=== PATIENT | male | born 1980 ===

== ENCOUNTER 2018-01-15 08:11 | Emergency (ER) | payer OTHER ==
[2018-01-15 08:18] VITALS: BMI 26.6
--- NOTE | 2018-01-15 08:44 | C.PDOC ---
History Of Present Illness 37 year old male presents to ED with complaints of right knee pain after trip and fall yesterday in his home. He states floor was wet and he fell onto right knee and now complains of pain worse with bending or walking. He applied ice and has not taken any pain medication. He states he noticed swelling and bruising to knee and comes in for evaluation. Time Seen by Provider: 01/15/18 08:25 Chief Complaint (Nursing): Lower Extremity Problem/Injury History Per: Patient History/Exam Limitations: no limitations Current Symptoms Are (Timing): Still Present Past Medical History Reviewed: Historical Data, Nursing Documentation, Vital Signs Vital Signs: Last Vital Signs Temp 97.4 F L 01/15/18 10:03 Pulse 62 01/15/18 10:03 Resp 18 01/15/18 10:03 BP 133/79 01/15/18 10:03 Pulse Ox 97 01/15/18 16:14 - [facility] Procedures CLOSURE SKIN & SUBCUTANEOUS NEC (07/12/13) TETANUS TOXOID ADMINIST (07/12/13) Family History: States: No Known Family Hx - Social History Hx Tobacco Use: Yes Hx Alcohol Use: Yes Hx Substance Use: No - Immunization History Hx Tetanus Toxoid Vaccination: Yes Hx Influenza Vaccination: No Hx Pneumococcal Vaccination: No Review Of Systems Musculoskeletal: Positive for: Other (right knee pain). Negative for: Back Pain Neurological: Negative for: Weakness, Numbness Physical Exam - Physical Exam Appears: Non-toxic, No Acute Distress Skin: Warm, Dry, No Rash Head: Normacephalic Eye(s): bilateral: PERRL Nose: Normal Oral Mucosa: Moist Lips: Normal Appearing Neck: Normal ROM Extremity: Other (knee pain, swelling Right knee with mild swelling, tenderness and ecchymosis to medial subpatellar area, normal ROM. Ankle and foot nontender and no swelling or limited ROM) Pulses: Left Dorsalis Pedis: Normal, Right Dorsalis Pedis: Normal Neurological/Psych: Oriented x3, Normal Speech ED Course And Treatment O2 Sat by Pulse Oximetry: 97 (RA) Pulse Ox Interpretation: Normal Medical Decision Making Medical Decision Making: Impression: knee pain Plan: * knee xray * Motrin Progress: Xray viewed by me showing no acute fracture, small effusion. Jackson bandage applied by RN Dispo: Patient informed of xray results. Advise rest, ice and analgesics. Disposition Counseled Patient/Family Regarding: Diagnosis, Need For Followup, Rx Given - Disposition Referrals: Raj Pollack III, MD [Staff Provider] - Disposition: HOME/ ROUTINE Disposition Time: 09:52 Condition: STABLE Additional Instructions: Your xray was normal, no fracture. Please apply ice to area 15 minutes three times a day. Take Motrin as needed for pain every 6 hours, with food to not upset stomach. Follow up with orthopedic if pain persists over one week. Tu radiografa fue normal, sin fractura. Por favor aplique hielo en el luciano 15 minutos kirby veces al da. [place] Motrin cuando sea necesario para el dolor cada 6 horas, con alimentos para no alterar el estmago. Rafael un seguimiento con ortopedia si el dolor persiste tana yolanda semana. Prescriptions: Ibuprofen [Motrin] 600 mg PO Q8 #30 tab Instructions: Knee Pain (DC) Forms: [employer] (Citizen Of [place]), Work Excuse Print Language: ROMANIAN - POA Present On Arrival: Falls Or Trauma - Clinical Impression Clinical Impression: Knee effusion, right - Scribe Statement The provider has reviewed the documentation as recorded by the Scribe (Jaswinder Flores) All medical record entries made by the Scribe were at my direction and personally dictated by me. I have reviewed the chart and agree that the record accurately reflects my personal performance of the history, physical exam, medical decision making, and the department course for this patient. I have also personally directed, reviewed, and agree with the discharge instructions and disposition.
--- NOTE | 2018-01-15 09:32 | RAD ---
PROCEDURE: Right Knee Radiographs. HISTORY: Pain, s.p fall COMPARISON: None. FINDINGS: BONES: Bone alignment and mineralization are normal. There is no acute displaced fracture or bone destruction. JOINTS: Normal. No osteoarthritis. JOINT EFFUSION: There is a small suprapatellar effusion. OTHER FINDINGS: None. IMPRESSION: No acute fracture or dislocation. Small suprapatellar joint effusion.
[2018-01-15 10:04] VITALS: BP 133/79; PULSE 62; RESP 18; TEMP 97.4
[2018-01-15 16:14] VITALS: O2SAT 97
== END 2018-01-15 10:21 | disposition home or self-care (01) ==
LOC: C.ER 08:11
DX: M25.461 Effusion, right knee (principal)